=== PATIENT | male | born 1960 | race Caucasian/White ===

== ENCOUNTER 2018-06-03 19:10 | Emergency (ER) | payer BC ==
[~2018-06-03] VITALS: Ht 180.3 cm; Wt 108.9 kg
== END 2018-06-03 19:46 | disposition left against medical advice (07) ==
LOC: ER 19:10
DX: Z53.21 Procedure and treatment not carried out due to patient leaving prior to being seen by health care provider (principal)

== ENCOUNTER 2024-04-20 10:05 | Day surgery (SDC) | payer MEDICARE ==
[~2024-04-20] VITALS: Ht 180.3 cm; Wt 101.5 kg
[~2024-04-20 10:05] MED LIST: Lactated Ringer's 1,000 ML IV ONE
[2024-04-20] MEDS ORDERED: Lactated Ringer's 1,000 ML IV ONE (11:15)
[2024-04-20] MEDS ORDERED: propofoL 50 ML IV ONE (11:15)
[2024-04-20 12:15] VITALS: BP 115/63
== END 2024-04-20 12:25 | disposition home or self-care (01) ==
LOC: ORSCSDS 10:05
PROVIDERS: Internal Medicine Gastroenterology
PROC: 0DBM8ZX Excision of Descending Colon, Via Natural or Artificial Opening Endoscopic, Diagnostic (ICD-10-PCS; principal; 2024-04-20 11:45)
PROC: 0DBN8ZX Excision of Sigmoid Colon, Via Natural or Artificial Opening Endoscopic, Diagnostic (ICD-10-PCS; principal; 2024-04-20 11:45)
PROC: 0DBL8ZX Excision of Transverse Colon, Via Natural or Artificial Opening Endoscopic, Diagnostic (ICD-10-PCS; principal; 2024-04-20 11:45)
DX: Z12.11 Encounter for screening for malignant neoplasm of colon (principal); Z86.0100 Personal history of colon polyps, unspecified; Z83.719 Family history of colon polyps, unspecified; D12.4 Benign neoplasm of descending colon; D12.5 Benign neoplasm of sigmoid colon; D12.3 Benign neoplasm of transverse colon; N18.31 Chronic kidney disease, stage 3a; K57.30 Diverticulosis of large intestine without perforation or abscess without bleeding; Z79.899 Other long term (current) drug therapy
CPT/HCPCS: 88305; J2704; J7120